=== PATIENT | female | born 1985 | race Caucasian/White ===

== ENCOUNTER → 2016-08-02 | Outpatient (CLI) | payer OTHER ==
--- NOTE | 2016-08-02 22:54 | DI ---
LUMBAR SPINE SERIES, 08/02/2016 2:06 PM: Clinical History: Lumbar pain. Previous Exam: None at this facility. Upright AP and lateral and upright lateral flexion and extension views are submitted. The vertebral b odies are of normal height and size. The patient is status post L4 and L5 laminectomies with anterior and posterior fusions at L4-5 and L5-S1. Posterior fusions are accomplished with metallic struts tra nsfixed with pedicle screws between L4 and S1 as well as with bone grafts. Lucencies surround the bon e graft superiorly and inferiorly at L5-S1 indicating the fusion is not solid. There is also a sharp interface between the bone graft cage and the respective vertebral endplates at L4-5 also suggesting this fusion is not solid. The remaining disc spaces are normal height. No instability is noted with f lexion and extension maneuvers although the patient is performing flexion primarily at the lower thor acic level where there is disc space narrowing between T12 and L1. The pedicles and remaining posteri or elements are unremarkable. Both SI joints are normal. Readin. Status post anterior and posterior fusions at L4-5 and L5-S1 with laminectomies at L4 and L5. The anterior fusions may not be solid. 2. The remaining disc spaces are of normal height. There is disc space narrowing at T12-L1 and the m ajority of movement is occurring at this level with the patient performing a flexion maneuver.
== END ==
LOC: RAD 13:39
PROVIDERS: ATTEND Neurological Surgery
DX: M54.5 Low back pain (principal); M48.05 Spinal stenosis, thoracolumbar region; Z98.890 Other specified postprocedural states
CPT/HCPCS: 72110

== ENCOUNTER → 2016-09-26 | Outpatient (CLI) | payer OTHER ==
[2016-09-26 12:38] LABS: BASOPHILS # (AUTO) 0.04 10*3/UL; BASOPHILS % (AUTO) 0.6 % (0-1); EOSINOPHILS # (AUTO) 0.11 10*3/UL; EOSINOPHILS % (AUTO) 1.6 % (0-8); HEMATOCRIT 43.9 % (37.0-47.0); HEMOGLOBIN 14.8 g/dL (12.0-16.0); MEAN CORPUSCULAR HGB CONC 33.7 g/dL (33-37); MEAN CORPUSCULAR VOLUME 86.1 FL (81-99); MONOCYTES # (AUTO) 0.42 10*3/UL (0.3-0.8); MONOCYTES % (AUTO) 6.2 % (5-15); NEUTROPHILS % (AUTO) 70.9 % (50-80)
[2016-09-26 12:46] LABS: PLATELET MORPHOLOGY COMMENT NORMAL MORPHOLOGY (NORM); RBC MORPHOLOGY COMMENT NORMAL MORPHOLOGY (NORM); WBC MORPHOLOGY COMMENT NORMAL MORPHOLOGY (NORM)
[2016-09-26 13:30] LABS: BUN/CREATININE RATIO 15.83 (6-20); CALCIUM 9.2 mg/dL (8.7-10.7); CHOL/HDL RATIO 5.07 RATIO (0-4.0); LDL CHOLESTEROL,CALCULATED 144.4 mg/dL; SERUM ALBUMIN 4.2 g/dL (3.5-4.8)
[2016-09-26 17:05] LABS: BILIRUBIN,URINE NEGATIVE (NEG); CLARITY,URINE SLIGHTLY CLOUDY (CLEAR); COLOR,URINE YELLOW; GLUCOSE, URINE (UA) NEGATIVE (NEG); NITRATE,URINE NEGATIVE (NEG); OCCULT BLOOD,URINE NEGATIVE (NEG); PH,URINE 5.5 (5.0-8.5); PROTEIN,URINE TRACE mg/dl (NEG); URINE SAMPLE TYPE VOIDED SPECIMEN; UROBILINOGEN,URINE 0.2 EU/dL (0.2)
[2016-09-26 17:07] LABS: SQUAMOUS EPITHELIAL CELL,UR FEW
[2016-09-26 17:08] LABS: URINE CRYSTALS MANY
== END ==
LOC: MOB LAB 11:43
PROVIDERS: ATTEND Internal Medicine
DX: G40.909 Epilepsy, unspecified, not intractable, without status epilepticus (principal); E66.01 Morbid (severe) obesity due to excess calories; F32.9 Major depressive disorder, single episode, unspecified
CPT/HCPCS: 36415; 80053; 80061; 81001; 84443; 85025

== ENCOUNTER → 2016-11-08 | Outpatient (CLI) | payer OTHER | LOC: MMPC 09:00 | DX: H66.92 Otitis media, unspecified, left ear (principal) ==

== ENCOUNTER → 2016-12-11 | Outpatient (CLI) | payer OTHER | LOC: MMPC 11:11 | PROVIDERS: ATTEND Internal Medicine | DX: M62.838 Other muscle spasm (principal); E28.2 Polycystic ovarian syndrome; F32.9 Major depressive disorder, single episode, unspecified; M62.81 Muscle weakness (generalized); E66.01 Morbid (severe) obesity due to excess calories; E89.40 Asymptomatic postprocedural ovarian failure; G43.009 Migraine without aura, not intractable, without status migrainosus | CPT/HCPCS: 99214; G0463 ==

== ENCOUNTER → 2016-12-26 | Outpatient (CLI) | payer OTHER | LOC: MMPC 11:11 | PROVIDERS: ATTEND Internal Medicine | DX: F33.1 Major depressive disorder, recurrent, moderate (principal); M62.838 Other muscle spasm; G43.009 Migraine without aura, not intractable, without status migrainosus; E66.01 Morbid (severe) obesity due to excess calories; E89.40 Asymptomatic postprocedural ovarian failure; M54.5 Low back pain; M79.641 Pain in right hand; Z98.1 Arthrodesis status | CPT/HCPCS: 99213; G0463 ==